=== PATIENT | male | born 2000 | race Caucasian/White ===

== ENCOUNTER 2018-05-17 14:29 | Outpatient (CLI) | payer OTHER | END 2018-05-17 14:30 | disposition home or self-care (01) | DRG 563 | LOC: CONVCARE 14:29 | PROVIDERS: ATTEND Orthopaedic Surgery | DX: S82.845A Nondisplaced bimalleolar fracture of left lower leg, initial encounter for closed fracture (principal) | CPT/HCPCS: 73700 ==

== ENCOUNTER 2018-06-07 10:09 | Outpatient (CLI) | payer OTHER | END 2018-06-07 10:10 | disposition home or self-care (01) | DRG 561 | LOC: CONVCARE 10:09 | PROVIDERS: ATTEND Orthopaedic Surgery | DX: S82.842D Displaced bimalleolar fracture of left lower leg, subsequent encounter for closed fracture with routine healing (principal) | CPT/HCPCS: 73610 ==

== ENCOUNTER 2018-07-05 08:40 | Outpatient (CLI) | payer OTHER | END 2018-07-05 08:41 | disposition home or self-care (01) | DRG 561 | LOC: CONVCARE 08:40 | PROVIDERS: ATTEND Orthopaedic Surgery | DX: S82.842D Displaced bimalleolar fracture of left lower leg, subsequent encounter for closed fracture with routine healing (principal) | CPT/HCPCS: 73610 ==